=== PATIENT | female | born 1950 | race African-American/Black ===

== ENCOUNTER → 2020-10-13 | Outpatient (CLI) | payer MEDICARE ==
--- NOTE | 2020-10-13 09:13 | KCIC ---
MRI of the cervical spine without contrast 10/13/2020 CLINICAL HISTORY: Neck pain. Right arm numbness. TECHNIQUE: Unenhanced T1-weighted, T2-weighted and inversion recovery sagittal and gradient echo and T2-weighted axial images of the cervical spine were obtained. FINDINGS: There is straightening of the normal cervical lordosis. Degenerative signal changes are see n involving all of the disks of the cervical spine. The marrow signal of the visualized bony structur es is within normal limits. The cervical spinal cord is normal morphology, position, and signal kalpana cteristics. At the C2-3 disc space there is a minimal generalized disc bulge. Degenerative changes are seen invol ving the uncovertebral and facet joints, left greater than right. These findings do not result in sig nificant central spinal canal or neural foraminal stenosis. At the C3-4 disc space there is a mild generalized disc bulge. Degenerative changes are seen involvin g the uncovertebral and facet joints bilaterally. These findings efface the anterior and posterior CS F resulting in mild central spinal canal stenosis without evidence of cord impingement. Mild right ne ural foraminal stenosis is seen. The left neural foramen is patent. At the C4-5 disc space there is a mild generalized disc bulge. Degenerative changes are seen involvin g the uncovertebral and facet joints, right greater than left. These findings efface the anterior and posterior CSF resulting in mild central spinal canal stenosis without evidence of cord impingement. Mild right neural foraminal stenosis is seen. The left neural foramen is patent. At the C5-6 disc space there is a mild generalized disc bulge. Degenerative changes are seen involvin g the uncovertebral and facet joints, left greater than right. These findings do not result in signif icant central spinal canal or neural foraminal stenosis. At the C6-7 disc space there is a mild generalized disc bulge. Degenerative changes are seen involvin g the uncovertebral and facet joints, right greater than left. These findings do not result in signif icant central spinal canal or neural foraminal stenosis. At the C7-T1 disc space there is a minimal generalized disc bulge. Degenerative changes are seen invo lving the uncovertebral and facet joints bilaterally. These findings do not result in significant semaj tral spinal canal or neural foraminal stenosis. IMPRESSION: Degenerative changes are seen throughout the cervical spine. These findings result in mil d central spinal canal stenosis without evidence of cord impingement and mild right-sided neural fora sea stenosis at C3-4 and C4-5. Electronically signed by: Santos Pearl MD (10/13/2020 9:10 AM) [id number]
== END ==
LOC: KCIC MRI 07:52
PROVIDERS: ATTEND Neurological Surgery
DX: M47.813 Spondylosis without myelopathy or radiculopathy, cervicothoracic region (principal); M48.02 Spinal stenosis, cervical region
CPT/HCPCS: 72141

== ENCOUNTER → 2020-12-12 | Outpatient (CLI) | payer MEDICARE ==
--- NOTE | 2020-12-12 13:33 | CARD ---
MR#: [id number] Date of Study: 12/12/2020 Ordering Physician: YARA SCHWARTZ, Referring Physician: YARA SCHWARTZ, Tech: Anibal Shah [facility] APPROVED REPORT EXAM: Two-dimensional and M-mode echocardiogram with Doppler and color Doppler. Other Information Quality : GoodHR: 73bpm Rhythm : NSR INDICATION RISK FACTORS Hypertension Family History 2D DIMENSIONS IVSd1.2 (0.7-1.1cm)Aortic Root(2D)3.6 (2.0-3.7cm) LVDd3.6 (3.9-5.9cm)LVOT Diameter1.8 (1.8-2.4cm) PWd1.3 (0.7-1.1cm)LVDs2.2 (2.5-4.0cm) FS (%) 39.7 %SV37.9 ml Aortic Valve AoV Peak Brett.161.3cm/sAoV VTI35.2cm AO Peak GR.10.4mmHgLVOT Peak Brett.142.8cm/s LVOT VTI 31.18cmAO Mean GR.5mmHg MARICHUY (VMAX)1.02rj3YEF (VTI)2.17cm2 AI P 1/2 Oxka439ex Mitral Valve MV E Yfrqyzpm06.6cm/sMV E Peak Gr.6mmHg MV DECEL [id number] A Hmsxxhjc87.3cm/s MV DOB38diP/A Ratio0.6 MVA (PHT)3.31cm2 TDI E/Lateral E'11.0E/Medial E'9.0 Pulmonary Valve PV Peak Lrjmjbjl21.3cm/sPV Peak Grad.3mmHg Tricuspid Valve TR P. Ktngrfxu925bo/sTR Peak Gr.23mmHg LEFT VENTRICLE The left ventricle is normal size. There is mild concentric left ventricular hypertrophy. The left ve ntricular systolic function is normal. LV ejection fraction is 55 to 60%. There is normal LV segmenta l wall motion. Transmitral Doppler flow pattern is Grade I-abnormal relaxation pattern. No left ventr icle thrombus noted on this study. There is no ventricular septal defect visualized. There is no left ventricular aneurysm. There is no mass noted in the left ventricle. RIGHT VENTRICLE The right ventricle is normal size. There is normal right ventricular wall thickness. The right ventr icular systolic function is normal. ATRIA The left atrium is mildly dilated. The right atrium size is normal. The interatrial septum is intact with no evidence for an atrial septal defect or patent foramen ovale as noted on 2-D or Doppler imagi ng. AORTIC VALVE The aortic valve is normal in structure and function. Doppler and Color Flow revealed trace to mild a ortic regurgitation. There is no significant aortic valvular stenosis. There is no aortic valvular ve getation. MITRAL VALVE The mitral valve is normal in structure and function. There is no evidence of mitral valve prolapse. There is no mitral valve stenosis. Doppler and Color-flow revealed trace to mild mitral regurgitation . TRICUSPID VALVE The tricuspid valve is normal in structure and function. Doppler and Color Flow revealed trace to mil d tricuspid regurgitation. There is no tricuspid valve prolapse or vegetation. There is no tricuspid valve stenosis. PULMONIC VALVE The pulmonary valve is normal in structure and function. Doppler and Color Flow revealed no pulmonic valvular regurgitation. There is no pulmonic valvular stenosis. GREAT VESSELS The aortic root is normal in size. The ascending aorta is normal in size. The pulmonary artery is nor mal. The IVC is normal in size and collapses >50% with inspiration. PERICARDIAL EFFUSION There is no pleural effusion. There is no evidence of significant pericardial effusion. Critical Notification Critical Value: No <Conclusion> The left ventricle is normal size. The left ventricular systolic function is normal. LV ejection fraction is 55 to 60%. There is mild concentric left ventricular hypertrophy. Doppler and Color Flow revealed trace to mild aortic regurgitation. There is no significant aortic valvular stenosis. Doppler and Color-flow revealed trace to mild mitral regurgitation. Doppler and Color Flow revealed trace to mild tricuspid regurgitation. Signed by : Joe Singh MD Electronically Approved : 12/12/2020 13:32:53
== END ==
LOC: ECHO 08:13
PROVIDERS: ATTEND Nurse Practitioner Family
DX: I08.3 Combined rheumatic disorders of mitral, aortic and tricuspid valves (principal); I11.9 Hypertensive heart disease without heart failure; R53.1 Weakness
CPT/HCPCS: 93306

== ENCOUNTER → 2020-12-29 | Outpatient (CLI) | payer MEDICARE ==
--- NOTE | 2020-12-29 11:23 | RAD ---
EXAM: Carotid Doppler sonogram. HISTORY: Right-sided weakness. Atherosclerosis. TECHNIQUE: Aviles scale and color Doppler sonographic evaluation of the neck with spectral waveform katty lysis was performed and static images are submitted for review. FINDINGS: The peak systolic velocity within the right common carotid artery is 75 cm/sec. The peak sy stolic velocity within the right internal carotid artery is 87 cm/sec and the end diastolic velocity within the right internal carotid artery is 32 cm/sec. The right ICA/CCA ratio is 1.2. The peak systolic velocity within the left common carotid artery is 95 cm/sec. The peak systolic [place] within the left internal carotid artery is 64 cm/sec and the end diastolic velocity within the l eft internal carotid artery is 24 cm/sec. The left ICA/CCA ratio is 0.94. There is normal antegrade flow within both vertebral arteries. IMPRESSION: Doppler findings consistent with less than 50 percent stenosis involving the internal car otid arteries. PQRS Compliance Statement - Stenosis calculations for CT, MR and conventional angiography are based u salma measurement of the distal ICA diameter in accordance with the NASCET methodology. Stenosis calcu lations for carotid ultrasound studies are derived from validated velocity criteria which are known t o correlate with the NASCET methodology. Electronically signed by: Etta Sandy MD (12/29/2020 11:20 AM) [id number]
--- NOTE | 2020-12-29 11:50 | RAD ---
EXAM: Brain MRI without contrast. HISTORY: Right-sided weakness. TECHNIQUE: Multiplanar, multisequence magnetic resonance imaging of the brain was performed without c ontrast. COMPARISON: None. FINDINGS: There is no restricted diffusion to suggest acute or subacute infarction. There is no mass effect or midline shift. There is no hydrocephalus. There are multiple scattered focal areas of signa l change throughout the cerebral white matter, likely due to chronic small vessel disease. There is a tiny focus of encephalomalacia within the right cerebellum, likely due to chronic infarcti on. There is a tiny chronic lacunar infarct within the left thalamus. There are dilated perivascular spaces within the basal ganglia. The orbits are unremarkable. There is ethmoid sinus mucosal thickening. The mastoid air cells are beverley ar. There are normal flow voids within the cerebral vessels. There is no suspicious calvarial lesion. IMPRESSION: 1. No acute intracranial finding. 2. Bilateral cerebral white matter changes, likely due to chronic small vessel disease. 3. Suspected tiny chronic infarct within the right cerebellum and left thalamus. Electronically signed by: Etta Sandy MD (12/29/2020 11:47 AM) [id number]
== END ==
LOC: US 10:00
PROVIDERS: ATTEND Nurse Practitioner Family
DX: G93.89 Other specified disorders of brain (principal); I63.81 Other cerebral infarction due to occlusion or stenosis of small artery; R53.1 Weakness
CPT/HCPCS: 70551; 93880

== ENCOUNTER → 2021-01-28 | Outpatient (CLI) | payer MEDICARE ==
[~2021-01-28] MED LIST: ALPR1TAB6 PO; ASPI-630 PO; GABA-585 PO; IOHEXOL 180 MG/ML 10 ML VIAL. ONE; METO-239 PO; SIMV10TA15 PO; methylPREDNISolone ACETATE 40 MG/ML VIAL. ONE; methylPREDNISolone ACETATE 80 MG/ML VIAL. ONE
--- NOTE | 2021-01-28 13:48 | PDOC4 ---
Procedure Note: ICD 10 Code: ICD 10 Code: M54.17 N 48.07 Procedure Note: Patient was consented for lumbar epidural steroid injection with fluoroscopic guidance. Risks were discussed including but not limited to: Bleeding, infection, possibility of epidural hematoma and subsequent neurological compromise, dural puncture, headaches, spinal cord and/or nerve damage, side effects of steroid medication, and poor results regarding pain control. Patient understands and wished to proceed. Procedure is lumbar epidural steroid injection under local anesthetic using sterile prep and drape at the L5-S1 level using C-arm fluoroscopic guidance in both AP and lateral views medications injected is 120 mg Depo-Medrol +10mL preservative-free normal saline and 2 mL contrast- condition at discharge is stable patient tolerated procedure well had no complications. PRIMITIVO DOWNEY MD Jan 28, 2021 13:48
--- NOTE | 2021-01-28 13:48 | PDOC1 ---
INITIAL PAIN CONSULT DATE OF SERVICE: DOS: DATE: 01/28/21 TIME: 13:41 CHIEF COMPLAINT: Chief Complaint: Low back and right lower extremity pain HISTORY OF PRESENT ILLNESS: 70-year-old female presents history of pain in the low back right lower extremity for approximate 1 year after a treadmill stress test she started getting pain after that about a year ago in the low back and the right lower extremity. Patient reports has been getting worse with time she has had physical therapy done as well as doing stretching strengthening on her own and had some injections in the past done in outside facility which were very helpful for her neck and shoulders but not for the low back. Patient reports the pain in her back and leg now awakens her from sleep least once or twice a night does not affect her bowel bladder control but does affect her ability to walk is using a cane to ambulate as well. Patient reports the pain is described as numbness and tingling throbbing shooting in the low back and right lower extremity posterior gluteus posterior thigh posterior calf around the right hip as well change during the day worse with activity standing walking better with sitting or lying down but does awaken from sleep least once or twice a night patient reports is not effective bowel bladder control does affect ability to walk and she is using a cane to do so. Patient is only taking [id number] medications currently which have not been helpful in decreasing her pain significantly. Patient rates her disability rating 0-10 10 being the worst is a 9/10 with recreation 7 with social activity 8 with occupation and self-care and 5 life support activities. PAST MEDICAL HISTORY: PMH: Hypertension, hypercholesterolemia, arthritis, anxiety and depression, cigarette smoking PREVIOUS SURGERIES: Past Surgical Hx: Hysterectomy, ganglion cystectomy, breast biopsy CURRENT MEDICATIONS: Current Meds: Active Scripts Medications Dose Route/Sig Max Daily Dose Days Date Category Simvastatin 10 Mg Tablet 1 Tab PO QHS 01/28/21 Reported Gabapentin (Gabapentin) 100 Mg Capsule 100 Mg PO HS 01/28/21 Reported Aspirin 81 Mg Tab.chew 1 Tab PO DAILY 01/28/21 Reported Alprazolam 1 Mg Tablet 1 Tab PO DAILY 01/28/21 Reported Metoprolol Succinate ( Xl ) (Metoprolol Succinate) 25 Mg Tab.er.24h 1 Tab PO DAILY 01/28/21 Reported ALLERGIES; Allergies: Coded Allergies: duloxetine (Verified Allergy, Intermediate, Unknown, 01/28/21) Uncoded Allergies: shell fish (Allergy, Severe, Swelling, 01/28/21) FAMILY HISTORY: Family Hx: Heart disease, diabetes, Alzheimer's SOCIAL HISTORY: Social Hx: Patient drinks alcohol 2-3 times a week smokes marijuana 2-3 times a week smokes cigarettes proximate 10 cigarettes a day and has for 30 years is and lives with her spouse, and lives locally in [facility] REVIEW OF SYSTEMS: ROS: Positive for those items mentioned in history of present illness, all systems ar e reviewed, otherwise negative ,and are complete full and well-documented on patient's chart. PHYSICAL EXAM: VS: Blood pressure is 128/84 pulse 78 respirations 18 temperature is 97.9 F height is 5 feet 6 inches weight is 145 pounds PE: PHYSICAL EXAMINATION: GENERAL: The patient is awake, alert, oriented, appropriate, very pleasant in demeanor HEENT: Shows normocephalic, atraumatic. Extraocular movements are intact and symmetrical. Oral cavity: Mucous membranes moist and pink. NECK: Shows anterior throat supple without palpable lymphadenopathy noted. Swallow reflex symmetrical. CHEST: Shows normal on inspection. Breath sounds are clear bilaterally, distant but no rales or rhonchi. HEART: Shows S1, S2 clear. No murmurs auscultated. ABDOMEN: Soft, nontender, nondistended, obese. No palpable organomegaly is noted. No rebound or guarding demonstrated. BACK: Shows spine grossly in the midline. Normal-appearing cervical lordotic curvature. There is increased thoracic kyphosis, some flattening of the lumbar lordotic curvature. Lumbar paraspinous muscles show symmetrical on inspection, on palpation shows some moderate tenderness diffusely throughout the upper, middle and lower distribution of the paraspinous muscles bilaterally and also into the lower thoracic paraspinous musculature, firm and tender, but without specific trigger points, without radiation of pain. The patient has good rotational motion of the lumbar spine, both laterally as well as extension and flexion without significant difficulty. No tenderness over the spinous processes, sacrum or sacroiliac regions. EXTREMITIES: Lower extremities show deep tendon reflexes 2+ in the patellar and tendo calcaneus tendons. Motor exam is 4 on a scale of 5 with right dorsiflexion, extension, quadriceps and hamstring flexion and 5/5 on the left. Peripheral pulses are 1+ posterior tibial. No peripheral edema is noted bilaterally. Lower extremities are warm and dry to touch, equal in color and appearance. Straight leg raise noted to be positive on the right about 40 degrees, left side is negative. Gaenslen's and Harvey's maneuvers are negative as well. The patient is able to stand, stand on her toes without significant difficulty loss of balance, walks with a slight favoring gait favoring the right lower extremity and has a cane she uses in her left hand. SKIN: Shows warm and dry, good turgor. No edema. No sores, rashes or bruising throughout. IMPRESSION: Impression: 70-year-old female with approximate 1 year history low back right lower extremity pain after treadmill stress test MRI scan lumbar spine as noted Hypertension Arthritis Marijuana use Cigarette smoking Plan: Options were discussed with the patient including conservative medical management physical therapies interventional techniques. Patient would like to pursue interventional techniques. We discussed a lumbar epidural steroid injection using description as well as anatomical models to describe the proce dure. Risks were discussed including but not limited to: Bleeding, infection, possibility of epidural hematoma and subsequent neurological compromise, dural puncture, headaches, spinal cord and/or nerve damage, side effects of steroid medication, and poor results regarding pain control. Patient understands and wished to proceed. Patient will return to the clinic in approximately 2 weeks for follow-up, was counseled as return appointment, activity level, and side effects to be aware of. Procedure is lumbar epidural steroid injection under local anesthetic using sterile prep and drape at the L5-S1 level using C-arm fluoroscopic guidance in both AP and lateral views medications injected is 120 mg Depo-Medrol +10mL preservative-free normal saline and 2 mL contrast- condition at discharge is stable patient tolerated procedure well had no complications. PRIMITIVO DOWNEY MD Jan 28, 2021 13:47
== END ==
LOC: PNCL 09:21
PROVIDERS: ATTEND Anesthesiology
DX: M51.17 Intervertebral disc disorders with radiculopathy, lumbosacral region (principal); I10 Essential (primary) hypertension; E78.00 Pure hypercholesterolemia, unspecified; F41.9 Anxiety disorder, unspecified; F32.9 Major depressive disorder, single episode, unspecified; M19.90 Unspecified osteoarthritis, unspecified site; F17.210 Nicotine dependence, cigarettes, uncomplicated; Z79.899 Other long term (current) drug therapy; Z90.710 Acquired absence of both cervix and uterus; Z90.6 Acquired absence of other parts of urinary tract; Z98.890 Other specified postprocedural states
CPT/HCPCS: 62323; J1030; J1040; Q9965

== ENCOUNTER → 2021-02-20 | Outpatient (CLI) | payer MEDICARE, BC ==
[~2021-02-20] MED LIST changes: -methylPREDNISolone ACETATE 40 MG/ML VIAL. ONE
--- NOTE | 2021-02-20 10:58 | PDOC ---
Progress Note - Pain Clinic Date of Service: DOS: DATE: 02/20/21 TIME: 10:55 Diagnosis: Dx: Lumbar radiculopathy with lumbar degenerative disc disease and lumbar spinal stenosis History or Present Illness: HPI: 70-year-old female returns for follow-up status post lumbar epidural steroid injection x1. Patient reports 25% improvement for several days following the injection the pain returned fairly quickly in the low back into the right lower extremity patient reports its in the posterior gluteus posterior thigh posterior calf lateral thigh and calf into the foot on the lateral aspect of the tingling patient reports pain the back is aching and tight radiating the leg can be constant at both levels worse with walking standing changing positions patient reports pain is a 10 on scale 10 is worst 8 on average 5 its least and is an 8 today. Patient reports no new motor or sensory deficits no bowel or bladder incontinence patient has started physical therapy because she has some balance issues and feels that this is helping but only slightly. Patient reports still wakes her from sleep and only occasionally maybe once every 6-7 hours. Patient reports is doing much better with distance walking initially for the first few days but the pain returned and she is back to her baseline with balance and walking. Physical Exam: VS: Blood pressure is 130/75 pulse 84 respirations 18 temperature is 98.5 F weight is 136 pounds PE: PHYSICAL EXAMINATION: GENERAL: The patient is awake, alert, oriented, appropriate, very pleasant in demeanor HEENT: Shows normocephalic, atraumatic. Extraocular movements are intact. Oral cavity: Mucous membranes moist and pink. NECK: Shows anterior throat supple without palpable lymphadenopathy noted. Swallow reflex symmetrical. CHEST: Shows normal on inspection. Breath sounds are clear bilaterally, no rales or rhonchi. HEART: Shows S1, S2 clear. No murmurs auscultated. ABDOMEN: Soft, nontender, nondistended, obese. No palpable organomegaly is noted. BACK: Shows spine grossly in the midline. Normal-appearing cervical lordotic curvature. There is slightly increased thoracic kyphosis, some minor flattening of the lumbar lordotic curvature. Lumbar paraspinous muscles show symmetrical on inspection, on palpation shows some moderate tenderness diffusely throughout the upper, middle and lower distribution of the paraspinous muscles, but without specific trigger points, without radiation of pain. The patient has good rotational motion of the lumbar spine, both laterally as well as extension and flexion without significant difficulty. EXTREMITIES: Lower extremities show deep tendon reflexes 2+ in the patellar and tendo calcaneus tendons. Motor exam is 4 on a scale of 5 with right dorsiflexion, extension, quadriceps and hamstring flexion and []/5 on the left. Peripheral pulses are 1+ posterior tibial. No peripheral edema is noted bilate rally. Lower extremities are warm and dry to touch, equal in color and appearance. SKIN: Shows warm and dry, good turgor. No edema. No sores, rashes or bruising throughout. Procedure: Procedure: Options discussed with the patient. Patient chart reviews her current medication regimen updated current review of systems updated today as well. We will proceed with a lumbar epidural steroid injection steroid injection with fluoroscopic guidance. Risks were discussed including but not limited to: Bleeding, infection, possibility of epidural hematoma and subsequent neurological compromise, dural puncture, headaches, spinal cord and/or nerve damage, side effects of steroid medication, and poor results regarding pain control. Patient understands and wished to proceed. Patient return to clinic in approximate 2 weeks for follow-up, was counseled as to return appointment activity level and side effects to be aware of. Medication Injected: Med Injected: Procedure is lumbar epidural steroid injection under local anesthetic using sterile prep and drape at the L5-S1 level using C-arm fluoroscopic guidance in both AP and lateral views medications injected is 120 mg Depo-Medrol +10mL preservative-free normal saline and 2 mL contrast- condition at discharge is stable patient tolerated procedure well had no complications. Condition at Discharge: Condition at Discharge: Condition at discharge stable, patient already the procedure well and had no complications. PRIMITIVO DOWNEY MD Feb 20, 2021 10:58
--- NOTE | 2021-02-20 10:59 | PDOC4 ---
Procedure Note: ICD 10 Code: ICD 10 Code: M54.16 M4 8.06 M51.36 Procedure Note: Patient was consented for lumbar epidural steroid injection with fluoroscopic guidance. Risks were discussed including but not limited to: Bleeding, infection, possibility of epidural hematoma and subsequent neurological compromise, dural puncture, headaches, spinal cord and/or nerve damage, side effects of steroid medication, and poor results regarding pain control. Patient understands and wished to proceed. Procedure is lumbar epidural steroid injection under local anesthetic using yeny rile prep and drape at the L5-S1 level using C-arm fluoroscopic guidance in both AP and lateral views medications injected is 120 mg Depo-Medrol +10mL preservative-free normal saline and 2 mL contrast- condition at discharge is stable patient tolerated procedure well had no complications. PRIMITIVO DOWNEY MD Feb 20, 2021 10:59
== END | disposition home or self-care (01) ==
LOC: PNCL 10:10
PROVIDERS: ATTEND Anesthesiology
DX: M51.16 Intervertebral disc disorders with radiculopathy, lumbar region (principal); M48.061 Spinal stenosis, lumbar region without neurogenic claudication; Z79.899 Other long term (current) drug therapy; Z79.82 Long term (current) use of aspirin; Z91.013 Allergy to seafood; Z88.8 Allergy status to other drugs, medicaments and biological substances
CPT/HCPCS: 62323; J1040; Q9965

== ENCOUNTER → 2021-03-06 | Outpatient (CLI) | payer MEDICARE, BC ==
[~2021-03-06] MED LIST changes: -methylPREDNISolone ACETATE 80 MG/ML VIAL. ONE
--- NOTE | 2021-03-06 09:48 | PDOC4 ---
Procedure Note: ICD 10 Code: ICD 10 Code: M54.17 M4 8.07 M51.36 Procedure Note: Patient was consented for lumbar epidural steroid injection with fluoroscopic guidance. Risks were discussed including but not limited to: Bleeding, infection, possibility of epidural hematoma and subsequent neurological compromise, dural puncture, headaches, spinal cord and/or nerve damage, side effects of steroid medication, and poor results regarding pain control. Patient understands and wished to proceed. Procedure is lumbar epidural steroid injection under local anesthetic using yeny rile prep and drape at the L5-S1 level using C-arm fluoroscopic guidance in both AP and lateral views medications injected is 120 mg Depo-Medrol +10mL preservative-free normal saline and 2 mL contrast- condition at discharge is stable patient tolerated procedure well had no complications. PRIMITIVO DOWNEY MD Mar 06, 2021 09:48
--- NOTE | 2021-03-06 09:48 | PDOC ---
Progress Note - Pain Clinic Date of Service: DOS: DATE: 03/06/21 TIME: 09:43 Diagnosis: Dx: Lumbar radiculopathy with lumbar degenerative disc disease and lumbar spinal stenosis History or Present Illness: HPI: 70-year-old female returns for follow-up status post lumbar epidural steroid injection x2 most recently February 20, 2021 patient reports doing very well with at least 50% improvement in the low back and right lower extremity. Patient reports now the pain is returning and mostly in the right leg and foot also some pain in the right hand which is new and numbness and tingling in the right arm patient reports this has come up over the past month or so is getting worse and more noticeable patient reports is an 8 on scale 10 is worse over the past week 7 on average 7 at its least and is a 7 today patient reports the pain is tingling and cramping in the back radiating shooting in the right lower extremity posterior gluteus posterior thigh posterior calf and into the sole of the foot as well as the lateral foot and toes patient reports she has not fallen but feels unstable on her feet because it is becoming more painful over the past week or so patient reports better with sitting or laying down generally does not awaken her from sleep at night patient's right arm feels weak as well with holding items of the right hand and numbness and tingling in the hand as well Physical Exam: VS: Blood pressure is 140/92 pulse 90 respirations of 16 temperature 98.2 F height is 5 foot 5 inches weight is 150 pounds PE: PHYSICAL EXAMINATION: GENERAL: The patient is awake, alert, oriented, appropriate, very pleasant in demeanor HEENT: Shows normocephalic, atraumatic. Extraocular movements are intact and symmetrical. Oral cavity: Mucous membranes moist and pink. NECK: Shows anterior throat supple without palpable lymphadenopathy noted. Swallow reflex symmetrical. CHEST: Shows normal on inspection. Breath sounds are clear bilaterally, distant but no rales or rhonchi. HEART: Shows S1, S2 clear. No murmurs auscultated. ABDOMEN: Soft, nontender, nondistended, obese. No palpable organomegaly is noted. BACK: Shows spine grossly in the midline. Normal-appearing cervical lordotic curvature. Cervical paraspinous muscles show symmetrical inspection, palpation some moderate tenderness more diffusely in the middle and lower distribution the paraspinous muscles are slightly more tender on the right than the left but present bilaterally. Patient shows full rotation motion cervical spine both lat erally as well as extension flexion without difficulty or pain reported. There is slightly increased thoracic kyphosis, some minor flattening of the lumbar lordotic curvature. Lumbar paraspinous muscles show symmetrical on inspection, on palpation shows some moderate tenderness diffusely throughout the upper, middle and lower distribution of the paraspinous muscles, but without specific trigger points, without radiation of pain. The patient has good rotational motion of the lumbar spine, both laterally as well as extension and flexion without significant difficulty. No tenderness over the spinous processes, sacrum or sacroiliac regions. EXTREMITIES: Lower extremities show deep tendon reflexes 2+ in the patellar and tendo calcaneus tendons. Motor exam is 4 on a scale of 5 with right dorsiflexion, extension, quadriceps and hamstring flexion and 5/5 on the left. Peripheral pulses are 1 posterior tibial. No peripheral edema is noted bilaterally. Lower extremities are warm and dry to touch, equal in color and appearance. Upper extremity show deep tendon reflexes 2+ in the biceps triceps tendons, motor exam strong with counter pocket sewer, bicep and tricep flexion. Shoulder shrug strong intact bilaterally without loss of strength on resistance. SKIN: Shows warm and dry, good turgor. No edema. No sores, rashes or bruising throughout. Procedure: Procedure: Options were discussed with the patient. Patient chart was reviewed as her current medication regimen updated current review of systems updated today as well. We will proceed with a lumbar epidural steroid injection today with fluoroscopic guidance. Risks were discussed including but not limited to: Bleeding, infection, possibility of epidural hematoma and subsequent neurological compromise, dural puncture, headaches, spinal cord and/or nerve damage, side effects of steroid medication, and poor results regarding pain control. Patient understands and wished to proceed. Patient return to clinic in approximate 2 weeks for follow-up, was counseled as return appointment, activity level, and side effect to be aware of. Also discussed medication management with patient we will increase gabapentin to 200 mg nightly. We will see if this helps with the right upper extremity pain if not did discuss possible imaging of the cervical spine to rule out radiculopathy. Medication Injected: Med Injected: Procedure is lumbar epidural steroid injection under local anesthetic using sterile prep and drape at the L5-S1 level using C-arm fluoroscopic guidance in both AP and lateral views medications injected is 120 mg Depo-Medrol +10mL preservative-free normal saline and 2 mL contrast- condition at discharge is stable patient tolerated procedure well had no complications. Condition at Discharge: Condition at Discharge: Condition at discharge stable, patient tolerated the procedure well and had no complications. PRIMITIVO DOWNEY MD Mar 06, 2021 09:48
== END | disposition home or self-care (01) ==
LOC: PNCL 09:10
PROVIDERS: ATTEND Anesthesiology
DX: M51.16 Intervertebral disc disorders with radiculopathy, lumbar region (principal); M48.061 Spinal stenosis, lumbar region without neurogenic claudication; Z79.82 Long term (current) use of aspirin; Z79.899 Other long term (current) drug therapy; Z88.0 Allergy status to penicillin; Z91.013 Allergy to seafood; Z88.8 Allergy status to other drugs, medicaments and biological substances
CPT/HCPCS: 62323; Q9965